=== PATIENT | female | born 1995 ===

== ENCOUNTER 2019-03-02 08:00 | Inpatient (IN) ==
[2019-03-02] MEDS ORDERED: Metoclopramide 10 MG/2 ML VIAL IVP PRN (15:30)
[2019-03-02] MEDS ORDERED: Ondansetron 4 MG/2 ML VIAL IVP PRN (15:30)
[2019-03-02] MEDS ORDERED: Naloxone 0.4 MG/ML INJ IVP PRN (15:30)
[2019-03-02] MEDS ORDERED: Famotidine 20 MG/2 ML VIAL IVP PRN (15:30)
[2019-03-02] MEDS ORDERED: *HR* Nalbuphine 10 MG/ML AMPUL IVP PRN (15:30)
[2019-03-02 16:08] LABS: Basophils % 0.2 %; Eosinophils # 0.1 K/mcL (0.0-0.6); Eosinophils % 0.8 %; Hematocrit 35.4 % (35.3-44.9); Hemoglobin 11.7 g/dL (11.5-15.4); Immature Granulocytes % 0.5 % (0-4); Lymphocytes # 2.3 K/mcL (0.6-4.6); Lymphocytes % 17.9 %; Mean Corpuscular HGB Conc 33.1 g/dL (31.6-35.5); Mean Corpuscular Hemoglobin 27.9 pg (28.0-33.3); Mean Corpuscular Volume 84.5 fL (83.0-100.0); Mean Platelet Volume 11.1 fL (9.4-12.4); Monocytes # 0.7 K/mcL (0.0-1.3); Monocytes % 5.5 %; Neutrophils # 9.7 K/mcL (1.6-8.9); Platelet Count 283 K/mcL (140-400); Red Blood Count 4.19 M/mcL (3.82-4.97); Red Cell Distribution Width 13.7 % (11.5-14.5); Segmented Neutrophils % 75.1 %; White Blood Count 12.9 K/mcL (4.3-11.1)
[2019-03-02 16:17] LABS: Amphetamine Screen,Urine Negative ng/mL (Cutoff=1000); Barbiturate Screen,Urine Negative ng/mL (Cutoff=200); Benzodiazepines Screen,Urine Negative ng/mL (Cutoff=200); Cannabinoid Screen,Urine Negative ng/mL (Cutoff = 50); Cocaine Screen,Urine Negative ng/mL (Cutoff= 300); Opiate Screen,Urine Negative ng/mL (Cutoff=300); Phencyclidine Screen,Urine Negative ng/mL (Cutoff=25)
[2019-03-02] MEDS ORDERED: Penicillin G Potassium 5,000,000 UNIT in 0.9 % Sodium Chloride Mini Bag 100 ML IVPB ONE (16:20)
[2019-03-02] MEDS ORDERED: Ringers Solution, Lactated 1,000 ML ONE ×2 (16:50→21:54)
[2019-03-02] MEDS ORDERED: Oxytocin 20 units/ LR 1000 mL 20 UNIT/1,000 ML BAG IVC ONE (19:51)
[2019-03-02] MEDS ORDERED: Oxytocin 20 units/ LR 1000 mL 20 UNIT/1,000 ML BAG IVC SCH (20:00)
[2019-03-02] MEDS ORDERED: Penicillin G Potassium 2,500,000 UNIT in 0.9 % Sodium Chloride 100 ML IVPB SCH (20:00)
[2019-03-02] MEDS ORDERED: Epidural Premix (fent/bupiv) 110 ML EP SCH (22:00)
[2019-03-02] MEDS ORDERED: Epidural Premix (fent/bupiv) 110 ML EP ONE (22:05)
--- NOTE | 2019-03-02 22:09 | OB/GYN History & Physical ---
Date of Encounter: 03/02/19 Time of Encounter: 22:06 Assessment and Plan (1) 39 weeks gestation of Current visit: Yes Status: Acute 23-year-old 3 para 2 female at 39 weeks gestation presents for induction of labor secondary to favorable cervix being 7 cm dilated 90% effaced. Pain she has been concave a small for gestational age infant recent ultrasound showed to be 8.8 percentile. She is aware of risks and benefits of induction desires to proceed. We will begin with Pitocin and expect spontaneous vaginal delivery. Of note she did test positive for group a strep and therefore after discussing with pediatricians and reading "up-to-date" decision was made to give penicillin prophylaxis prior to amniotomy. (2) Small for gestational age fetus Current visit: Yes Status: Acute History of Present Illness Chief complaint: Here for induction HPI: Ms. Loza is a 23 year old female at 39 weeks EGA presented for induction of labor. has been for small for gestational age with last ultrasound showing an estimated weight of 8.8 percentile with an MARY of 8. On arrival she repor ts irregular contractions no bleeding or leakage of fluid Past Med Surg Social Fam HX - Past Medical History Source: patient, old records reviewed Medical history: no medical history Psychiatric history: no psych history - Past Surgical History Surgical History: no surgical history Additional surgical history: closed reduction left ankle - Social History Smoking Status: Current every day smoker Packs per day: 1/2 Smokeless Tobacco Status: No Alcohol use: none Drug use: marijuana - Family History Mother Adopted: [place]: Denies family history Family Member Ethnicity: Non- Living Status: Still Living Hx Family Cardiac Disorders: No Hx Family Respiratory Disorders: No Hx Family Cancer: No Hx Family GI Disorders: No Hx Family Endocrine Disorder: No Hx Family Neuromuscular Disorders: No Hx Family Neurologic Disorders: No Hx Family HEENT Disorders: No Hx Family Autoimmune Disorders: No Obstetrical History - Pregnancies : 3 Para: 2 Medications and Allergies Pnv Plus Multivit Tab 1 tab PO DAILY 04/09/16 [History] Allergy/AdvReac Type Severity Reaction Status Date / Time No Known Allergies Allergy Verified 04/09/16 12:59 Exam - Constitutional Constitutional: well developed, well nourished - HEENT HEENT: EOMI - Neck Neck exam: full ROM - Lungs Respiratory exam: CTAB - Cardiovascular Cardiovascular exam: RRR - Abdomen Abdomen: Present: bowel sounds normal, gravid - Extremities Extremities exam: full ROM Deep Tendon Reflex Grade: 2+ Normal - Cervix Dilation: 7 Effacement: 90 Station: -1 - Uterus Uterus exam: Present: enlarged Results Result Diagrams: 03/02/19 15:45 Abnormal lab results WBC 12.9 K/mcL (4.3-11.1) H 03/02/19 15:45 MCH 27.9 pg (28.0-33.3) L 03/02/19 15:45 Neutrophils # 9.7 K/mcL (1.6-8.9) H 03/02/19 15:45 All other labs normal. - VTE Reasons for not Prescribing Prophylaxis: Treatment not Indicated - Low risk for VTE
--- NOTE | 2019-03-02 22:15 | OB Labor Progress Note ---
Date of Encounter: 03/02/19 Time of Encounter: 22:14 Labor Progress Note - Subjective Subjective: Pt getting more uncomfortable - Cervix Cervix: /-1 - Heart Tones Heart Tones: RNST - Interventions Interventions: AROM clear - Plan Plan: Expect .
--- NOTE | 2019-03-02 22:45 | Anesthesia Evaluation PreOp ---
Date of Encounter: 03/02/19 Time of Encounter: 22:00 - Past History Planned Operation: letty Cardiac History: Denies any Significant Hx Pulmonary History: Denies Any Significant HX PROPOSAL LEAD WRITER History: Denies Any Significant HX Other Medical History: Denies Any Significant HX Anesthesia History: No Prior Anesthetic Complications : Yes Test: Positive Alcohol Use: none Drug use: none, marijuana Medications and Allergies Pnv Plus Multivit Tab 1 tab PO DAILY 04/09/16 [History] Allergy/AdvReac Type Severity Reaction Status Date / Time No Known Allergies Allergy Verified 04/09/16 12:59 - Meds/Allergy Pre-op Review Medications Reviewed: Yes Allergies Reviewed: Yes Beta Blockers on Current Med List: No Anesthesia Results - Labs 03/02/19 15:45 Anesthesia Exam - HEENT Pupil (Motor): Pupils equal Mallampati: II Teeth: Normal Oral Opening: Greater than 3 - PROPOSAL LEAD WRITER LOC: Oriented PROPOSAL LEAD WRITER Motor: Normal RUE, Normal LUE, Normal RLE, Normal LLE, Normal Face PROPOSAL LEAD WRITER Sensory: Normal: RUE, LUE, RLE, LLE, Face - Cardiac Rhythm: Regular Murmur: None JVD: No Carotid Bruit: No - Pulmonary Breath Sounds: bilateral Clear Respiratory Effort: Symmetrical Anesthesia Assess/Plan ASA Score: 1 Level of consciousness: Cooperative Anesthetic Plan: Epidural
--- NOTE | 2019-03-02 22:51 | Anesthesia Procedures ---
Date of Encounter: 03/02/19 Time of Encounter: 22:00 Procedures: Anesthesia - Epidural/Spinal Patient ID/Chart reviewed: Yes Patient examined: Yes OB Eval: Gestational age: 39.1 OB Eval: : 3 OB Eval: Hx Para: 1 OB Eval: Dilated at (cm): 7 OB Eval: Contractions: Non-stressed pattern Consent Obtained: Yes Site Prep: Aseptic Technique, Sterile prep and drape, Povidone-Iodine 1% Patient position: upright Amount of Local Anesthetic used: 3 Touhy Needle Gauge: 18 Touhy Needle Depth (cm): 5 Catheter Depth at Skin (cm): 8 Test Dose (1.5% Lido + Epi): Volume given (mls): 3 Test Dose Result: Negative Loading Dose Administered: Thru Catheter Infusion Rate (mls/hr): [address]: Tegaderm, Tape Interspace Used: L4-L5 Loss of Resistance (SAEID): Yes Blood: No CSF: Yes (purposeful 25g sprotte to dura) Paresthesia: No Vitals + FHT's: stable throughout
--- NOTE | 2019-03-02 23:54 | OB/GYN Procedure Note ---
Delivery - Delivery Date: 03/02/19 Provider: Lance Sharp Intrapartum events: none Delivery induction: oxytocin Delivery monitor: external FHT, external uterine Anesthesia: epidural Quantitated Blood Loss: 100 - Repair Episiotomy: none - Complications Delivery complications: none Delivery comments: Nuchal cord 1 delivered through - Disposition Mom disposition: stable in LDR [employer] disposition: stable in LDR - Comments Comments: Patient is status post normal spontaneous vaginal delivery of liveborn male infant weighing 6 lbs. 2 oz. with Apgars of 9 at 1 minute and 10 at 5 minutes. Time of delivery had there was a nuchal cord 1 was relatively tight and was delivered through this. There was no shoulder dystocia. Delivery was over an intact perineum. With spontaneous delivery of a normal placenta with a three-vessel cord. On bimanual exam and uterine massage, uterus and there was no evidence of retained tissue. There were no lacerations, mother and recovered in LDR. EBL 100cc
[2019-03-03] MEDS ORDERED: Rho Immune Globulin 1,500 UNIT SYRINGE IM PRN (01:47)
[2019-03-03] MEDS ORDERED: Acetaminophen 325 MG TABLET PO PRN (01:47)
[2019-03-03] MEDS ORDERED: Measles/Mumps/Rubella Vacc 0.5 ML VIAL SQ PRN (01:47)
[2019-03-03] MEDS ORDERED: Oxytocin 20 units/ LR 1000 mL 20 UNIT/1,000 ML BAG IVC ONE (01:47)
[2019-03-03] MEDS ORDERED: Oxytocin 20 units/ LR 1000 mL 20 UNIT/1,000 ML BAG IVC SCH (01:47)
[2019-03-03] MEDS: Prenatal Vit/FA 1 EACH TABLET PO SCH (09:44)
[2019-03-03 09:45] LABS: Basophils % 0.3 %; Eosinophils # 0.1 K/mcL (0.0-0.6); Eosinophils % 0.7 %; Hematocrit 35.7 % (35.3-44.9); Hemoglobin 11.5 g/dL (11.5-15.4); Immature Granulocytes % 0.4 % (0-4); Lymphocytes # 2.6 K/mcL (0.6-4.6); Lymphocytes % 17.5 %; Mean Corpuscular HGB Conc 32.2 g/dL (31.6-35.5); Mean Corpuscular Hemoglobin 27.7 pg (28.0-33.3); Mean Platelet Volume 11.2 fL (9.4-12.4); Monocytes # 1.1 K/mcL (0.0-1.3); Monocytes % 7.2 %; Neutrophils # 11.1 K/mcL (1.6-8.9); Platelet Count 243 K/mcL (140-400); Red Blood Count 4.15 M/mcL (3.82-4.97); Red Cell Distribution Width 13.6 % (11.5-14.5); Segmented Neutrophils % 73.9 %; White Blood Count 14.9 K/mcL (4.3-11.1)
--- NOTE | 2019-03-03 11:18 | OB/GYN Progress Note ---
Date of Encounter: 03/03/19 Time of Encounter: 11:17 - Assessment and Plan (1) Status post vaginal delivery Current Visit: Yes Status: Acute Stable PPD#1 Continue current management Anticipate discharge tomorrow Subjective - Subjective Interval history: Stable, pain well managed, bleeding minimal, Patient reports: appetite normal, voiding normally, pain well controlled, ambulating normally : doing well Objective - Latest Vital Signs Latest vital signs: Vital Signs Temp Pulse Resp BP Pulse Ox 03/03/19 07:30 97.8 F 64 16 106/67 03/03/19 04:00 97.8 F 57 14 115/68 99 03/03/19 02:59 98.1 F 51 14 122/70 99 03/03/19 02:00 97.8 F 52 14 120/70 100 Intake and Output 03/02/19 03/03/19 03/03/19 23:59 07:59 15:59 Intake Total 500 / 860 360 / 860 Output Total 300 / 300 Balance 200 / 560 360 / 560 Intake: Oral 500 / 860 360 / 860 Output: Urine 300 / 300 Other: Meal Breakfast Percent of Meal Consumed 100% Weight 103.6 kg Patient Weight 03/03/19 23:59 Weight 103.6 kg - Exam Lungs: bilateral: normal Chest: Normal S1, Normal S2 Extremities: Present: normal Abdomen: Present: soft Uterus: Present: firm Uterus Position: At Umbilicus - Labs Labs: Laboratory Results - last 24 hr 03/02/19 03/02/19 03/03/19 15:45 15:45 09:33 WBC 12.9 H 14.9 H RBC 4.19 4.15 Hgb 11.7 11.5 Hct 35.4 35.7 MCV 84.5 86.0 MCH 27.9 L 27.7 L MCHC 33.1 32.2 RDW 13.7 13.6 Plt Count 283 243 MPV 11.1 11.2 Immature Gran % 0.5 0.4 Seg Neutrophils % 75.1 73.9 Lymphocytes % 17.9 17.5 Monocytes % 5.5 7.2 Eosinophils % 0.8 0.7 Basophils % 0.2 0.3 Neutrophils # 9.7 H 11.1 H Lymphocytes # 2.3 2.6 Monocytes # 0.7 1.1 Eosinophils # 0.1 0.1 Basophils # 0.0 0.0 Urine Opiates Screen Negative Ur Buprenorphine Scrn Negative Ur Barbiturates Screen Negative Ur Phencyclidine Scrn Negative Ur Amphetamines Screen Negative U Benzodiazepines Scrn Negative Urine Cocaine Screen Negative U Marijuana (THC) Screen Negative Ur Drug Screen Interp See Below
[2019-03-03] MEDS: Ibuprofen 600 MG TABLET PO PRN (19:46)
[2019-03-04 07:37] VITALS: BP 114/80
[2019-03-04] MEDS: Prenatal Vit/FA 1 EACH TABLET PO SCH (07:50)
[2019-03-04] MEDS: Ibuprofen 600 MG TABLET PO PRN (07:51)
--- NOTE | 2019-03-04 08:06 | Discharge Summary ---
Date of Encounter: 03/04/19 Time of Encounter: 08:05 - Discharge Diagnosis (1) Status post vaginal delivery Priority: Primary Status: Acute - Discharge Medications Prescriptions: New Ibuprofen [Motrin] 600 mg PO Q6HR PRN #60 tab PRN Reason: Pain No Action Pnv Plus Multivit Tab 1 tab PO DAILY Home Medications: Pnv Plus Multivit Tab 1 tab PO DAILY 04/09/16 [History] Ibuprofen [Motrin] 600 mg PO Q6HR PRN #60 tab 03/04/19 [Rx] Allergies/Adverse Reactions: Allergy/AdvReac Type Severity Reaction Status Date / Time No Known Allergies Allergy Verified 04/09/16 12:59 Data Procedures and tests throughout hospitalization: Laboratory Tests 03/02/19 03/02/19 03/03/19 15:45 15:45 09:33 WBC 12.9 H 14.9 H RBC 4.19 4.15 Hgb 11.7 11.5 Hct 35.4 35.7 MCV 84.5 86.0 MCH 27.9 L 27.7 L MCHC 33.1 32.2 RDW 13.7 13.6 Plt Count 283 243 MPV 11.1 11.2 Immature Gran % 0.5 0.4 Seg Neutrophils % 75.1 73.9 Lymphocytes % 17.9 17.5 Monocytes % 5.5 7.2 Eosinophils % 0.8 0.7 Basophils % 0.2 0.3 Neutrophils # 9.7 H 11.1 H Lymphocytes # 2.3 2.6 Monocytes # 0.7 1.1 Eosinophils # 0.1 0.1 Basophils # 0.0 0.0 Urine Opiates Screen Negative Ur Buprenorphine Scrn Negative Ur Barbiturates Screen Negative Ur Phencyclidine Scrn Negative Ur Amphetamines Screen Negative U Benzodiazepines Scrn Negative Urine Cocaine Screen Negative U Marijuana (THC) Screen Negative Ur Drug Screen Interp See Below Labs on day of discharge: Labs from last 24 hours 03/03/19 09:33 WBC 14.9 H RBC 4.15 Hgb 11.5 Hct 35.7 MCV 86.0 MCH 27.7 L MCHC 32.2 RDW 13.6 Plt Count 243 MPV 11.2 Immature Gran % 0.4 Seg Neutrophils % 73.9 Lymphocytes % 17.5 Monocytes % 7.2 Eosinophils % 0.7 Basophils % 0.3 Neutrophils # 11.1 H Lymphocytes # 2.6 Monocytes # 1.1 Eosinophils # 0.1 Basophils # 0.0 Date of admission: 03/02/19 15:05 Consults: 03/02/19 15:31 Consult to Coding Clerk (W&C) [CONS] Routine Reason For Exam: Reason for SW Consult: hx marijuana use during preg 03/03/19 01:47 Consult to Fishery Biologist [CONS] Routine Comment: Vaginal delivery, consult needed Discharging clinician: Felipa Nascimento Anticipated date of discharge: 03/04/19 - Patient Status Disposition: Home, Self-Care Condition: Good Functional capacity at discharge: independent ambulation Overall status at discharge: patient is back to baseline - Discharge Instructions Instructions: Vaginal Delivery (DC) Follow Up With: Lance Sharp MD [Partnered Physician] - Additional Instructions: Follow-up with Dr. Sharp as planned to schedule your tubal ligation. Call Dr. Sharp's office, or go to the ER if you experience any concerning symptoms, such as vaginal bleeding, large amounts of vaginal discharge, passing clots larger than a golf ball, fevers and chills, sudden onset of headaches or change in mental status, depression or thoughts of suicide, or any other problems you find concerning. Avoid any vaginal intercourse, tampons, or douching until cleared by your manufacturing assistant. - Diet and Activity Activity: increase activity as tolerated Diet: advance to your usual diet Hospital Course Episiotomy: none Laceration: none Other procedures: none complications: none Discharge diagnosis: IUP at term delivered [place] baby: male Hospital course: Rossy is a very pleasant 23-year-old who presented at 39 weeks gestation with irregular contractions, and was found to have a cervix that was dilated to a 7 and 90% effaced, so the decision was made to induce. Testing revealed she was positive for group A strep, and was treated as discussed in prior note by Dr. Sharp prior to rupturing her membranes. She did receive an epidural without complications, and delivered a healthy baby boy. A minor laceration was repaired, and she has had no complications. Today she reports minimal pain, minimal bloody discharge, good appetite, passing gas, urinating without issue, and no abdominal pain or tenderness. She plans to receive Depo-Provera shot before being discharged today, with plans for tubal ligation in 6 weeks. Mom and baby are doing well, and she is ready to be discharged home. Time Attestation: Total time spent providing and/or coordinating discharge services: Exam - Constitutional Vitals: Temp Pulse Resp BP Pulse Ox 97.8 F 50 14 114/80 98 03/04/19 07:36 03/04/19 07:36 03/04/19 07:36 03/04/19 07:36 03/04/19 07:36 General appearance IM: A&O X 3, pleasant, answers questions appropriately - Respiratory Respiratory exam: Present: CTAB. Absent: respiratory distress, rhonchi, stridor, wheezes - Cardiovascular Cardiovascular exam IM: Present: RRR, +S1, +S2 - GI/Abdominal GI/Abdominal exam IM: normal bowel sounds, no peritoneal signs - Rectal Rectal exam: deferred - External exam: normal external exam Uterine Tone: Firm Uterus Position: 2 Fingers Below Umbilicus - Extremities Exam Extremities exam IM: Present: full ROM, normal inspection - Neurological Exam Neurological exam: CN II-XII intact, oriented X3, no focal deficits
== END 2019-03-04 13:24 | disposition home or self-care (01) | DRG 560 ==
LOC: 1NENULAB 15:05 → 1NENUOBS 03-03 01:37
PROVIDERS: ADMIT Obstetrics & Gynecology; ATTEND Obstetrics & Gynecology